=== PATIENT | male | born 1945 | race Caucasian/White ===

== ENCOUNTER 2020-11-08 16:15 | Emergency (ER) | payer OTHER ==
[~2020-11-08] VITALS: Ht 188 cm; Wt 90.7 kg
== END 2020-11-08 17:03 | disposition home or self-care (01) ==
LOC: ER 16:15
DX: S01.01XA Laceration without foreign body of scalp, initial encounter (principal); W45.8XXA Other foreign body or object entering through skin, initial encounter
CPT/HCPCS: 99282

== ENCOUNTER → 2023-11-11 | Outpatient (CLI) | payer MEDICARE | END | disposition home or self-care (01) | LOC: LAB 10:31 → LAB SHORT 10:31 | DX: R30.0 Dysuria (principal) | CPT/HCPCS: 87086 ==

== ENCOUNTER 2024-04-24 22:46 | Observation (INO) | payer MEDICARE ==
[~2024-04-24] VITALS: Ht 188 cm; Wt 88.2 kg
[2024-04-24 23:36] LABS: BASOPHILS ABSOLUTE AUTO 0.04 K/mm3 (0.00-0.23); BASOPHILS PERCENT AUTO 0 % (0-2); EOSINOPHILS ABSOLUTE AUTO 0.12 K/mm3 (0.00-0.68); EOSINOPHILS PERCENT AUTO 1 % (0-6); Hemoglobin 15.4 g/dL (13.5-17.5); IMMATURE GRAN ABSOLUTE AUTO 0.02 K/mm3 (0.00-0.10); IMMATURE GRAN PERCENT AUTO 0 % (0-1); LYMPHOCYTES ABSOLUTE AUTO 0.63 K/mm3 (0.84-5.20); LYMPHOCYTES PERCENT AUTO 7 % (21-46); MONOCYTES ABSOLUTE AUTO 0.81 K/mm3 (0.16-1.47); MONOCYTES PERCENT AUTO 9 % (4-13); Mean Corpuscular HGB 30.7 pg (26.0-34.0); Mean Corpuscular Volume 88 fL (80-100); Mean Platelet Volume 10.8 fL (9.1-12.4); NEUTROPHILS ABSOLUTE AUTO 7.33 K/mm3 (1.96-9.15); NEUTROPHILS PERCENT AUTO 82 % (41-73); Platelet Count 203 K/mm3 (150-400); RDW Coefficient Variation 13.7 % (11.7-14.2); RDW Standard Deviation 43.9 fL (35.1-46.3); Red Blood Cell Count 5.01 M/mm3 (4.30-5.90); White Blood Cell Count 8.95 K/mm3 (4.00-11.30)
[2024-04-24 23:57] LABS: Albumin/Globulin Ratio 1.1 (0.8-1.8); Bilirubin, Total 0.4 mg/dL (0.1-1.0); Bun/Creatinine Ratio 20.5 (12.0-20.0); Calcium, Blood 9.6 mg/dL (8.5-10.1); Creatinine, Blood 1.32 mg/dL (0.60-1.20); Globulin, Blood 3.6 g/dL (2.2-4.0); Potassium, Blood 3.7 mmol/L (3.5-5.5); Total Protein, Blood 7.6 g/dL (6.4-8.2)
[2024-04-25] MEDS ORDERED: FentaNYL Citrate 50 MCG/ML 2 ML Injection IV ONE ×3 (00:25→06:00)
[2024-04-25] MEDS ORDERED: Ondansetron HCl 2 MG / ML 2ML Vial IV ONE (00:25)
[2024-04-25] MEDS ORDERED: NS 1,000 ML IV SCH (00:25)
[2024-04-25 00:51] LABS: Source, Urine Clean Catch
[2024-04-25 01:17] LABS: Bilirubin, Urine Neg (Neg); Blood, Urine 4+ (Neg); Glucose Qualitative, Urine Neg (Neg); Ketones, Urine 1+ (Neg); Leukocyte Esterase, Urine 1+ (Neg); Nitrite, Urine Neg (Neg); Protein, Urine 3+ (Neg); Urobilinogen, Urine NORM (Normal)
[2024-04-25 01:26] LABS: Appearance, Urine Hazy (Clear); Color, Urine Yellow (P-Yellow)
[2024-04-25 01:28] LABS: Amorphous Heavy (0-Heavy); Bacteria Few /hpf; Red Blood Cells, Urine 0-2 /hpf (0-2); Squamous Epithelial Cells Few /hpf (Few); Triple Phosphate Crystals Mod /hpf; White Blood Cells, Urine 0-2 /hpf (0-5)
[2024-04-25] MEDS ORDERED: MetroNIDAZOLE 500MG/NS 100 ml 100 ML IV ONE (03:05)
[2024-04-25] MEDS ORDERED: CefTRIAXone Sodium 1,000 MG in NS 50 ML IV ONE (03:05)
[2024-04-25] MEDS ORDERED: Naloxone HCl 0.4MG / ML 1ML Vial IV PRN (04:25)
[2024-04-25] MEDS ORDERED: FentaNYL Citrate 50 MCG/ML 2 ML Injection IV PRN (04:25)
[2024-04-25] MEDS ORDERED: Acetaminophen 325 MG TABLET PO PRN (04:25)
[2024-04-25] MEDS ORDERED: HYDROcodone 10-APAP 325 TAB PO PRN (04:25)
[2024-04-25] MEDS ORDERED: Ondansetron HCl 2 MG / ML 2ML Vial IV PRN (04:25)
[2024-04-25] MEDS ORDERED: FLU VACC TS2024-25(6MOS UP)/PF 45 MCG/0.5 ML SYRINGE IM SCH (04:25)
[2024-04-25] MEDS ORDERED: Lactated Ringer's 1,000 ML IV SCH (05:00)
[2024-04-25 05:19] VITALS: BP 178/84
[2024-04-25 05:20] VITALS: BP 178/84
--- NOTE | 2024-04-25 05:41 | NUR ---
SHIFT NTOE PT ARRIVED TO [facility] REQUESTING PAIN MEDICATION FOR 6/10 ABD PAIN. REVIEWED OPTIONS AVAIL TO PT PER EMAR. PT DECLINES PO MEDS, STATES HE CANNOT TAKE TYLENOL PER HIS PCP BECAUSE OF LIVER CONCERNS. REQUESTING IV FENTANYL. THIS RN INFORMED PT TOO SOON FOR NEXT DOSE; PT REQUESTS ORDERING PROVIDER TO DISC OPTIONS. TYPESETTER APPRENTICE MADE AWARE. PT STATES TO THIS RN, "I DONT WANT MY PAIN TO GET TO AN 8/10. IF IT GETS TO AN 8, I WILL START SCREAMING. IF IT GETS TO A 9, I WILL DO THINGS I PROBABLY SHOULDNT BE DOING". THIS RN OFFERED NPI IN THE MEANTIME WHILE WE AWAIT GUIDANCE FROM ORDERING PROVIDER, INCLUDING HEAT/ICE. PT DECLINES. [id number] HOSPITALIST AT BEDSIDE.
[2024-04-25] MEDS ORDERED: Lactobacil 2-S.Thermo-Bifido 1 1 Cap PO SCH (09:00)
[2024-04-25] MEDS ORDERED: Docusate Sodium 100 MG Cap PO SCH (09:00)
--- NOTE | 2024-04-25 09:27 | NUR ---
DR. NOONAN ROUNDED AND SPOKE WITH PT. PT STILL EXPRESSING DESIRE TO GO HOME AMA. PT DID REQUEST TO HAVE HIS AM ABX DOESE. HE REQUESTED THE RATE BE INCREASED SO HE COULD DISCHARGE HOME SOON POSSIBLE. SPOKE WITH PHARMACIST WHO STATED THAT FLAGYL CAN BE RUN OVER A THIRTY MINUTES. DR. NOONAN NOTIFIED OF PHARMACY RECOMMENDATION. RATE INCREASED TO INFUSE FLAGYL OVER 30 MINUTES.
[2024-04-25] MEDS ORDERED: MetroNIDAZOLE 500MG/NS 100 ml 100 ML IV SCH (10:00)
--- NOTE | 2024-04-25 10:07 | NUR ---
DISCHARGE PT PROVIDED WITH RISK/BENEFITS OF LEAVING AMA. AMA SHEET SIGNED AND PLACED ON CHART. PT PLEASANT AT TIME OF DISCHARGE. PT AMBULATED OUT INDEPENDENTLY.
[2024-04-26] MEDS ORDERED: CefTRIAXone Sodium 1,000 MG in NS 100 ML IV SCH (06:00)
== END 2024-04-25 10:20 | disposition left against medical advice (07) ==
LOC: ER 22:46 → SURS 22:47
PROVIDERS: Student in an Organized Health Care Education/Training Program; ADMIT Student in an Organized Health Care Education/Training Program
DX: K80.00 Calculus of gallbladder with acute cholecystitis without obstruction (principal); I10 Essential (primary) hypertension; N40.0 Benign prostatic hyperplasia without lower urinary tract symptoms; Z53.29 Procedure and treatment not carried out because of patient's decision for other reasons
CPT/HCPCS: 74176; 80053; 81001; 83690; 85025; 87086; 93005; 93010; 96361; 96365; 96374-59; 96375; 96376; 99285-25; G0378; J0696; J2405; J3010; J7030; J7120